=== PATIENT | male | born 1965 | race Caucasian/White ===

== ENCOUNTER 2019-12-19 05:26 | Emergency (ER) | payer BC, OTHER ==
--- NOTE | 2019-12-19 06:27 | EDM.PDOC ---
ED HPI GENERAL MEDICAL PROBLEM - General Chief Complaint: Eye Problems Stated Complaint: eye infection Time Seen by Provider: 12/19/19 05:45 Source of Information: Reports: Patient History Limitations: Reports: No Limitations - History of Present Illness INITIAL COMMENTS - FREE TEXT/NARRATIVE: Patient presented to the ED because of eye redness and discharge. There is no recent trauma or injury. He just started his tobradex last night and thought it should work right away. Bilateral Eye Pain Score (Numeric/FACES): 8 - Related Data Allergies Allergy/AdvReac Type Severity Reaction Status Date / Time No Known Allergies Allergy Verified 12/19/19 05:38 Home Meds: Home Meds Tobramycin/Dexamethasone [Tobradex Eye Drops] 2 drop OP QID #1 bottle 12/19/19 [Rx] Tobramycin/Dexamethasone [Tobramycin-Dexameth Ophth Susp] 1 drop EYEBOTH Q4H PRN MDD eye irritation/pain 12/19/19 [History] Past Medical History HEENT History: Reports: Other (See Below) Other HEENT History: recurrent eye infections, eye injury 13+ years ago - Past Surgical History Musculoskeletal Surgical History: Reports: Shoulder Surgery Other Musculoskeletal Surgeries/Procedures:: shoulder surgery x2 Social & Family History - Family History Family Medical History: Noncontributory - Tobacco Use Smoking Status *Q: Current Every Day Smoker Years of Tobacco use: 32 Packs/Tins Daily: 0.5 - Caffeine Use Caffeine Use: Reports: Coffee - Recreational Drug Use Recreational Drug Use: No ED ROS GENERAL - Review of Systems Review Of Systems: See Below Constitutional: Reports: No Symptoms HEENT: Reports: Eye Discharge, Eye Pain Respiratory: Reports: No Symptoms Cardiovascular: Reports: No Symptoms Endocrine: Reports: No Symptoms GI/Abdominal: Reports: No Symptoms : Reports: No Symptoms Musculoskeletal: Reports: No Symptoms Skin: Reports: No Symptoms Neurological: Reports: No Symptoms ED EXAM GENERAL W FULL EYE - Physical Exam Exam: See Below Exam Limited By: No Limitations General Appearance: Alert, No Apparent Distress Eye Exam: Bilateral Eye: Conjunctival Injection, PERRL Ears: Normal External Exam Nose: Normal Inspection, Normal Mucosa, No Blood Throat/Mouth: Normal Inspection, Normal Lips, Normal Teeth Head: Atraumatic, Normocephalic Neck: Normal Inspection, Supple, Non-Tender, Full Range of Motion Respiratory/Chest: No Respiratory Distress, Lungs Clear, Normal Breath Sounds Cardiovascular: Normal Peripheral Pulses, Regular Rate, Rhythm, No Edema, No Gallop GI/Abdominal: Normal Bowel Sounds, Soft, Non-Tender, No Organomegaly Course - Vital Signs Text/Narrative:: Tetracaine eye drops Refill Tobradex eye drops Last Recorded V/S: Last Vital Signs Temp 36.6 C 12/19/19 05:41 Pulse 68 12/19/19 05:41 Resp 18 12/19/19 05:41 BP 153/89 H 12/19/19 05:41 Pulse Ox 98 12/19/19 05:41 Departure - Departure Time of Disposition: 06:20 Disposition: Home, Self-Care 01 Condition: Good Clinical Impression: Acute conjunctivitis - Discharge Information Prescriptions: Tobramycin/Dexamethasone [Tobradex Eye Drops] 2 drop OP QID #1 bottle Instructions: Bacterial Conjunctivitis, Adult Referrals: PCP,None [Primary Care Provider] - Forms: ED Department Discharge Additional Instructions: Please read discharge instructions on acute conjunctivitis Do not rub your eyes, it causes swelling and worsening of infection Apply ice pack if it itches Appl 2 drops of toradex eye drops 4 times daily for 7 days Wear sunglasses if you're sensitive to light Follow up with your eye doctor in a week if there is no improvement Sepsis Event Note (ED) - Evaluation Sepsis Screening Result: No Definite Risk - Focused Exam Vital Signs: Vital Signs Temp Pulse Resp BP Pulse Ox 12/19/19 05:41 36.6 C 68 18 153/89 H 98
== END 2019-12-19 06:35 | disposition home or self-care (01) ==
LOC: FB.ED 05:26
DX: H10.33 Unspecified acute conjunctivitis, bilateral (principal); F17.210 Nicotine dependence, cigarettes, uncomplicated
CPT/HCPCS: 99282